=== PATIENT | female | born 1955 | race Caucasian/White ===

== ENCOUNTER 2025-03-20 14:22 | Inpatient (IN) ==
--- NOTE | 2025-03-20 14:26 | Emergency Department Note ---
Impression & Plan SBO (small bowel obstruction), Elevated lactic acid level, Abdominal pain, Nausea & vomiting ED Provider Note ED Provider Note NAME: VENUS MA AGE:69 SEX: Female : 1955 ARRIVES VIA: EMS INFORMANT: Patient ED PROVIDER(s): Chari Dhaliwal CHIEF COMPLAINT: Weakness HPI: 69-year-old female presents emergency room with complaints of general weakness. She states that this morning she felt weak and shaky. She states she felt like she was ill. She had several episodes of nausea and vomiting. She has no abdominal pain at this time on my exam, but her states that at home she had severe pain. Patient states that she had no trauma. She states that she was concerned about the possibility of a UTI since she woke up not feeling well. She has a history of uterine CA by her own history and had surgical cure of that almost 10 years prior. She states that she hasn't had any illnesses since. PAST MEDICAL HISTORY:See Below PAST SURGICAL HISTORY:See Below FAMILY HISTORY:See Below SOCIAL HISTORY:See Below HOME MEDICATIONS:See Below ALLERGIES:See Below VITALS:See Below PHYSICAL EXAMINATION: GENERAL: alert, well appearing, well nourished, no distress, non-toxic NECK: supple, no nuchal rigidity, no adenopathy, non-tender LUNGS: Clear to auscultation. Normal chest wall mechanics, no w/r/r HEART: no murmurs, S1 normal and S2 normal ABDOMEN: abdomen soft, non-tender, normo-active bowel sounds, no masses, no rebound or guarding. BACK: Back is symmetrical on inspection and there is no deformity, no midline tenderness, no CVA tenderness. SKIN: no rashes, petechiae, orbruising UPPER EXTREMITIES: upper extremities are grossly normal. FROM, nml pulses b/l. LOWER EXTREMITIES: No pitting edema. FROM, nml pulses b/l. NEURO EXAM: Normal sensorium, cranial nerves II-XII grossly intact, normal speech, no facial droop,nogross weakness of arms, no gross weakness of legs. Gross sensation intact. No ataxia. Vital Signs: reviewed and remarkable Differential Diagnosis: MEDICAL DECISION MAKIN-year-old female presents emergency room with complaints of nausea vomiting abdominal pain feeling generally weak. Found to have SBO. No further nausea vomiting in the emergency room. Can hold off on a NG for now. Plan for admitting to medicine. Consulted surgery, agreeable with plan. Medicine agreed to admit. Spoke with patient and her family, they are agreeable with plan for admission. Patient initially refused pain meds in the emergency room, did ask for pain meds upon speaking to her about admission, given meds with good improvement of pain. Consultation(s): Surgery - admit to medicine ER Treatment Provided: See below Diagnostics Interpreted By Me: -Laboratory studies: As stated above and show below. -Imaging studies: SBO Triage Nursing Note Reviewed Prior/Outside Records Reviewed Past Med/Surg History Problem List (Updated 03/20/25 @ 17:56 by Nancy Dhaliwal, ) SBO (small bowel obstruction) (Acute) Small bowel obstruction due to adhesions Nausea & vomiting (Acute) Abdominal pain (Acute) Elevated lactic acid level (Acute) Dizziness (Acute) Dizziness (Acute) Social History Smoking Status: Never smoker Feels Safe at Home: Yes Allergies Allergies Allergy/AdvReac Type Severity Reaction Status Date / Time No Known Allergies Allergy NONE Verified 03/20/25 17:04 Home Meds Home Medications Medication Instructions Recorded Confirmed No Known Home Medications 03/20/25 03/20/25 Results & Data (ED) Vital Signs Vital Signs - 24 hr 03/20/25 14:31 03/20/25 14:41 03/20/25 14:44 Temperature 36.5 C Temperature Source Oral Pulse Rate 66 Pulse Rate [Apical] 74 Pulse Rate from SpO2 Sensor Respiratory Rate 16 24 Respiratory Effort / Characteristics Non-Labored Spontaneous Non-Labored Spontaneous Respiratory Depth Normal Normal Respiratory Pattern Regular Blood Pressure 105/74 Blood Pressure Mean 84 Blood Pressure Position Semi-fowlers Pulse Oximetry 98 100 98 Oxygen Delivery Method Room Air Room Air Room Air Sepsis Recent Fever Within 48 Hours No Sepsis New/Unexplained Change in Mental Status No Sepsis Action Taken by Nursing No Action Required 03/20/25 15:00 03/20/25 15:06 03/20/25 15:57 Temperature Temperature Source Pulse Rate 85 67 71 Pulse Rate [Apical] Pulse Rate from SpO2 Sensor 79 78 Respiratory Rate 16 20 Respiratory Effort / Characteristics Respiratory Depth Respiratory Pattern Blood Pressure Blood Pressure Mean Blood Pressure Position Pulse Oximetry 97 99 Oxygen Delivery Method Sepsis Recent Fever Within 48 Hours Sepsis New/Unexplained Change in Mental Status Sepsis Action Taken by Nursing 03/20/25 16:00 03/20/25 16:00 03/20/25 16:00 Temperature Temperature Source Pulse Rate Pulse Rate [Apical] Pulse Rate from SpO2 Sensor Respiratory Rate Respiratory Effort / Characteristics Respiratory Depth Respiratory Pattern Blood Pressure 136/91 136/91 136/91 Blood Pressure Mean 111 111 111 Blood Pressure Position Pulse Oximetry Oxygen Delivery Method Sepsis Recent Fever Within 48 Hours Sepsis New/Unexplained Change in Mental Status Sepsis Action Taken by Nursing 03/20/25 16:00 03/20/25 16:27 03/20/25 16:31 Temperature Temperature Source Pulse Rate 71 78 Pulse Rate [Apical] Pulse Rate from SpO2 Sensor 71 74 Respiratory Rate 23 20 Respiratory Effort / Characteristics Respiratory Depth Respiratory Pattern Blood Pressure 128/103 H Blood Pressure Mean 113 Blood Pressure Position Pulse Oximetry 100 97 Oxygen Delivery Method Sepsis Recent Fever Within 48 Hours Sepsis New/Unexplained Change in Mental Status Sepsis Action Taken by Nursing 03/20/25 16:36 03/20/25 17:00 03/20/25 17:00 Temperature Temperature Source Pulse Rate 77 Pulse Rate [Apical] Pulse Rate from SpO2 Sensor 77 Respiratory Rate 20 Respiratory Effort / Characteristics Respiratory Depth Respiratory Pattern Blood Pressure 135/67 135/67 Blood Pressure Mean 92 92 Blood Pressure Position Pulse Oximetry 95 Oxygen Delivery Method Sepsis Recent Fever Within 48 Hours Sepsis New/Unexplained Change in Mental Status Sepsis Action Taken by Nursing 03/20/25 17:00 03/20/25 17:00 03/20/25 17:18 Temperature Temperature Source Pulse Rate 71 60 Pulse Rate [Apical] Pulse Rate from SpO2 Sensor Respiratory Rate 16 14 Respiratory Effort / Characteristics Respiratory Depth Respiratory Pattern Blood Pressure 135/67 Blood Pressure Mean 92 Blood Pressure Position Pulse Oximetry Oxygen Delivery Method Sepsis Recent Fever Within 48 Hours Sepsis New/Unexplained Change in Mental Status Sepsis Action Taken by Nursing 03/20/25 17:30 03/20/25 17:30 03/20/25 17:30 Temperature Temperature Source Pulse Rate Pulse Rate [Apical] Pulse Rate from SpO2 Sensor Respiratory Rate Respiratory Effort / Characteristics Respiratory Depth Respiratory Pattern Blood Pressure 132/76 132/76 132/76 Blood Pressure Mean 105 105 105 Blood Pressure Position Pulse Oximetry Oxygen Delivery Method Sepsis Recent Fever Within 48 Hours Sepsis New/Unexplained Change in Mental Status Sepsis Action Taken by Nursing 03/20/25 17:33 Temperature Temperature Source Pulse Rate 67 Pulse Rate [Apical] Pulse Rate from SpO2 Sensor 65 Respiratory Rate 17 Respiratory Effort / Characteristics Respiratory Depth Respiratory Pattern Blood Pressure Blood Pressure Mean Blood Pressure Position Pulse Oximetry 100 Oxygen Delivery Method Sepsis Recent Fever Within 48 Hours Sepsis New/Unexplained Change in Mental Status Sepsis Action Taken by Nursing Laboratory Data 03/20/25 14:36 03/20/25 14:36 Lab Results 03/20/25 03/20/25 03/20/25 Range/Units 14:36 15:16 15:40 WBC 12.25 H (4.8-10.8) K/ul RBC 5.30 (4.20-5.40) M/uL Hgb 15.8 (12.0-16.0) g/dl Hct 45.5 (37.0-47.0) % MCV 85.8 (80.0-100.0) fL MCH 29.8 (25.0-34.0) pg MCHC 34.7 (32.0-36.0) g/dL RDW Std Deviation 41.8 (36.4-46.3) fL RDW Coeff of Jose 13.3 (11.5-14.5) % Plt Count 340 (130-400) K/uL MPV 10.1 (9.4-12.4) fL Immature Gran % (Auto) 0.3 % Neut % (Auto) 87.8 % Lymph % (Auto) 7.2 % [place] % (Auto) 3.8 % Eos % (Auto) 0.4 % Baso % (Auto) 0.5 % Neut # (Auto) 10.75 H (1.40-6.50) K/uL Lymph # (Auto) 0.88 L (1.20-3.40) K/uL [place] # (Auto) 0.47 (0.11-0.59) K/uL Eos # (Auto) 0.05 (0.00-0.50) K/uL Baso # (Auto) 0.06 (0.00-0.20) K/uL Immature Gran # (Auto) 0.04 (0.01-0.20) K/uL Sodium 138 (136-145) mmol/L Potassium 3.7 (3.5-5.1) mmol/L Chloride 100 (98-107) mmol/L Carbon Dioxide 23 (21-32) mmol/L Anion Gap 15 H (3-11) BUN 22 (6-23) mg/dl Creatinine 0.83 (0.6-1.2) mg/dl Est Cr Clr Drug Dosing 49.4 ml/min eGFR 75.79 BUN/Creatinine Ratio 26.5 H (10-20) Glucose 166 H (70-99(Fasting)) mg/dl Lactate 3.6 H* (0.4-2.0) mmol/L Calcium 10.2 (8.6-10.3) mg/dl Total Bilirubin 1.1 H (0.2-1.0) mg/dl AST 22 (13-39) U/L ALT 12 (7-52) U/L Alkaline Phosphatase 67 (34-104) U/L Troponin I High Sens 3.3 (0-14) pg/ml Total Protein 8.2 (6.0-8.3) gm/dl Albumin 4.3 (3.4-5.0) gm/dl Globulin 3.9 (2.5-4.0) gm/dl Albumin/Globulin Ratio 1.1 (0.9-2) Lipase 48 (11-82) U/L Urine Color Cancelled Urine Appearance Cancelled Urine pH Cancelled Ur Specific [place] Cancelled Urine Protein Cancelled Urine Glucose (UA) Cancelled Urine Ketones Cancelled Urine Blood Cancelled Urine Nitrite Cancelled Urine Bilirubin Cancelled Urine Urobilinogen Cancelled Ur Leukocyte Esterase Cancelled Urine WBC (Auto) Cancelled Urine RBC (Auto) Cancelled U Hyaline Cast (Auto) Cancelled U Epithel Cells (Auto) Cancelled Urine Bacteria (Auto) Cancelled Ur Renal Epithelial Cell Cancelled [place] Biurate Crystals Cancelled Calcium Oxalate Crystal Cancelled Leucine Crystals Cancelled Cystine Crystals Cancelled Uric Acid Crystals Cancelled Triple Phos Crystals Cancelled Sulfonamide Crystals Cancelled Cholesterol Crystals Cancelled [place] Crystals Cancelled Tyrosine Crystals Cancelled Hippuric Acid Crystals Cancelled Unidentified Crystals Cancelled Amorphous Sediment Cancelled Epithelial Casts Cancelled Hyaline Casts Cancelled Granular Casts Cancelled Waxy Casts Cancelled RBC Casts Cancelled WBC Casts Cancelled Other Casts Cancelled Urine Mucus Cancelled Urine Other Cancelled Urine Trichomonas Cancelled Urine Yeast Cancelled Urine Sperm Cancelled Ur Oval Fat Bodies Cancelled Urine Comment Cancelled Administered Medications Sodium Chloride (Nss) 500 mls @ 125 mls/hr IV .Q4H [facility] Stop: 03/20/25 20:14 Last Admin: 03/20/25 17:27 Dose: 125 mls/hr Documented By: ELVIRA Sodium Chloride (Nss) 500 mls @ 80 mls/hr IV .Q6H15M [facility] Stop: 03/20/25 22:59 Last Admin: 03/20/25 17:31 Dose: Not Given Documented By: ELVIRA Ondansetron HCl (Ondansetron Inj 2 Mg/Ml 2 Ml Vial) 4 mg IV Q6H PRN PRN Reason: Nausea Stop: 04/19/25 16:37 Last Admin: 03/20/25 17:52 Dose: 4 mg Documented By: ELVIRA Discontinued Medications Hydromorphone HCl (Hydromorphone Inj 0.5 Mg/0.5 Ml Syr) 0.5 mg IV NOW STA Stop: 03/20/25 16:33 Last Admin: 03/20/25 16:43 Dose: 0.5 mg Documented By: ELVIRA Sodium Chloride (Nss) 1,000 mls @ 999 mls/hr IV .Q1H1M [facility] Stop: 03/20/25 16:48 Last Admin: 03/20/25 15:57 Dose: 999 mls/hr Documented By: BERTHA Imaging Data Radiologist's Impression: Chest X-Ray 03/20/25 14:38 XR chest 1V portable CLINICAL HISTORY: SOB COMPARISON STUDY: 11/07/2013 FINDINGS: Stable cardiomegaly without pulmonary vascular congestion. No consolidation or pleural effusion. No pneumothorax. IMPRESSION: No acute findings. ACT 112: Negative or not required by law. Electronically signed by: Joshua Maldonado M.D. 03/20/2025 3:02 PM Abdomen/Pelvis CT 03/20/25 14:[address] WITHOUT CONTRAST CT DOSE: 372.26 mGy.cm HISTORY: pain, NV TECHNIQUE: Multiaxial CT images of the abdomen and pelvis were performed without contrast. A dose lowering technique was utilized adhering to the principles of ALARA. COMPARISON STUDY: None FINDINGS: ABDOMEN: There is a 4 cm cyst inferior right hepatic lobe. Otherwise the liver, gallbladder, spleen, pancreas, and adrenal glands have an unremarkable noncontrast appearance. Kidneys show no hydronephrosis or calculi. There are moderate atherosclerotic calcifications. No abdominal aortic aneurysm. Pelvis: Urinary bladder is decompressed. Uterus is absent. No adnexal mass. There is sigmoid diverticulosis. No acute diverticulitis. There is distention of the small bowel at the left upper quadrant to the anterior low pelvis, likely involving mid jejunum to distal jejunum or proximal ileum. Distended small bowel loops measure up to 3.5 cm diameter. Mid and distal ileum are decompressed. No colonic distention seen. There is trace low pelvic free fluid. No free air or abscess. No enlarged adenopathy. No acute osseous finding seen. IMPRESSION: Small bowel obstruction with transition zone in the region of the proximal ileum. Otherwise as described. ACT 112: Negative or not required by law. The above report was generated using voice recognition software. It may contain grammatical, syntax or spelling errors. Electronically signed by: Joshua Maldonado M.D. 03/20/2025 4:03 PM Discharge Plan Visit Data Chief Complaint: Abdominal Pain Stated Complaint: AB PAIN, NAUSEA ED Provider: Nancy Dhaliwal Discharge Problem: SBO (small bowel obstruction), Elevated lactic acid level, Abdominal pain, Nausea & vomiting Patient Disposition: Admitted As Inpatient Condition: Good Forms Stand Alone Forms: [employer] Prescriptions Prescriptions: No Action No Known Home Medications Referrals Referrals: PCP,NO [Primary Care Provider] -
[2025-03-20 14:51] LABS: Hematocrit (blood only) 45.5 % (37.0-47.0); Hemoglobin 15.8 g/dl (12.0-16.0); Immature Granulocytes # (auto) 0.04 K/uL (0.01-0.20); Immature Granulocytes % (auto) 0.3 %; Mean Corpuscular Hemoglobin 29.8 pg (25.0-34.0); Mean Corpuscular Volume 85.8 fL (80.0-100.0); Platelet Count 340 K/uL (130-400); RDW Standard Deviation 41.8 fL (36.4-46.3); Red Blood Count 5.30 M/uL (4.20-5.40); White Blood Count 12.25 K/ul (4.8-10.8)
--- NOTE | 2025-03-20 15:03 | XRay Report ---
XR chest 1V portable CLINICAL HISTORY: SOB COMPARISON STUDY: 11/07/2013 FINDINGS: Stable cardiomegaly without pulmonary vascular congestion. No consolidation or pleural effu enid. No pneumothorax. IMPRESSION: No acute findings. ACT 112: Negative or not required by law. Electronically signed by: Joshua Maldonado M.D. 03/20/2025 3:02 PM
[2025-03-20 15:08] LABS: Alanine Aminotransferase 12.0 U/L (7-52); Albumin Globulin Ratio 1.1 (0.9-2); Albumin Level 4.3 gm/dl (3.4-5.0); Alkaline Phosphatase 67.0 U/L (34-104); Anion Gap 15.0 (3-11); Bilirubin,Total 1.1 mg/dl (0.2-1.0); Blood Urea Nitrogen 22.0 mg/dl (6-23); Calcium 10.2 mg/dl (8.6-10.3); Carbon Dioxide 23.0 mmol/L (21-32); Chloride 100.0 mmol/L (98-107); Creatinine Clr Calc Pharmacy 49.4 ml/min; Globulin 3.9 gm/dl (2.5-4.0); Glucose 166.0 mg/dl (70-99(Fasting)); Lipase 48.0 U/L (11-82); Potassium 3.7 mmol/L (3.5-5.1); Sodium 138.0 mmol/L (136-145); Total Protein 8.2 gm/dl (6.0-8.3)
[2025-03-20] MEDS: SODIUM CHLORIDE 0.9% 1,000 ML IV SCH (15:57)
--- NOTE | 2025-03-20 16:05 | CT Scan Report ---
ABDOMEN AND PELVIS CT WITHOUT CONTRAST CT DOSE: 372.26 mGy.cm HISTORY: pain, NV TECHNIQUE: Multiaxial CT images of the abdomen and pelvis were performed without contrast. A dose lo wering technique was utilized adhering to the principles of ALARA. COMPARISON STUDY: None FINDINGS: ABDOMEN: There is a 4 cm cyst inferior right hepatic lobe. Otherwise the liver, gallbladder, spleen, pancreas, and adrenal glands have an unremarkable noncontrast appearance. Kidneys show no hydronephro sis or calculi. There are moderate atherosclerotic calcifications. No abdominal aortic aneurysm. Pelvis: Urinary bladder is decompressed. Uterus is absent. No adnexal mass. There is sigmoid divertic ulosis. No acute diverticulitis. There is distention of the small bowel at the left upper quadrant to the anterior low pelvis, likely involving mid jejunum to distal jejunum or proximal ileum. Distended small bowel loops measure up to 3.5 cm diameter. Mid and distal ileum are decompressed. No colonic d istention seen. There is trace low pelvic free fluid. No free air or abscess. No enlarged adenopathy. No acute osseous finding seen. IMPRESSION: Small bowel obstruction with transition zone in the region of the proximal ileum. Otherwi se as described. ACT 112: Negative or not required by law. The above report was generated using voice recognition software. It may contain grammatical, syntax o r spelling errors. Electronically signed by: Joshua Maldonado M.D. 03/20/2025 4:03 PM
[2025-03-20] MEDS ORDERED: ACETAMINOPHEN 325 MG TAB PO PRN (16:38)
[2025-03-20] MEDS ORDERED: MoRPHine SULFATE 4 MG/ML 1 ML CARP\\VIAL IV PRN (16:38)
[2025-03-20] MEDS: HYDROmorphone INJ 0.5 MG/0.5 ML SYR IV STA (16:43)
[2025-03-20] MEDS: SODIUM CHLORIDE 0.9% 500 ML IV SCH ×2 (17:27→17:31)
--- NOTE | 2025-03-20 17:40 | Surgery Consultation ---
Date of Consultation March 20, 2025 Assessment & Plan (1) Small bowel obstruction due to adhesions: Small bowel obstruction likely secondary to adhesions from prior surgery Admit to medicine N.p.o., if vomits or symptoms persist may need NG tube Repeat KUB in the morning Discussed with patient and family that if patient fails nonoperative management then surgery may be necessary Surgical follow, call with questions or concerns History of Present Illness Reason for Consultation: Abdominal pain, SBO History of Present Illness Patient presented to the emergency department with lower abdominal pain that started this morning. Also had some nausea, no actual emesis. Prior total abdominal hysterectomy for tumor, no further therapy needed. No other abdominal surgeries. No known allergies. Still feels sick, pain is improved with pain medications. Not on any blood thinners. Allergies Allergy/AdvReac Type Severity Reaction Status Date / Time No Known Allergies Allergy NONE Verified 03/20/25 17:04 Home Medications Medication Instructions Recorded Confirmed Type No Known Home Medications 03/20/25 03/20/25 History Patient History Social History Smoking Status: Never smoker Feels Safe at Home: Yes Review of Systems Review of Systems: All systems reviewed & are unremarkable except as noted in HPI & below Physical Exam Constitutional: WD/WN, vitals as above + ill appearing Respiratory: normal respiratory effort, lungs clear to auscultation Cardiovascular: RRR, no murmur, no edema Gastrointestinal (Abdomen): Inspection/Auscultation: + abdomen distended (Mild) and + abdominal surgical scar Percussion/Palpation: + abdomen tender (Mildly tender to palpation bilateral lower quadrant, R>L) and abdomen soft; no guarding and abdomen not rigid Results & Data Vital Signs (Past 12 Hours) Vital Signs Temp Pulse Pulse Resp BP Pulse Ox O2 Del Method 03/20/25 17:00 71 16 03/20/25 17:00 135/67 03/20/25 17:00 135/67 03/20/25 17:00 135/67 03/20/25 16:36 77 20 95 03/20/25 16:31 128/103 H 03/20/25 16:27 78 20 97 03/20/25 16:00 71 23 100 03/20/25 16:00 136/91 03/20/25 16:00 136/91 03/20/25 16:00 136/91 03/20/25 15:57 71 20 99 03/20/25 15:06 67 03/20/25 15:00 85 16 97 03/20/25 14:44 98 Room Air 03/20/25 14:41 74 24 100 Room Air 03/20/25 14:31 36.5 C 66 16 105/74 98 Room Air Laboratory Results Laboratory Results - last 24 hr 03/20/25 03/20/25 03/20/25 14:36 15:16 15:40 WBC 12.25 H RBC 5.30 Hgb 15.8 Hct 45.5 MCV 85.8 MCH 29.8 MCHC 34.7 RDW Std Deviation 41.8 RDW Coeff of Jose 13.3 Plt Count 340 MPV 10.1 Immature Gran % (Auto) 0.3 Neut % (Auto) 87.8 Lymph % (Auto) 7.2 Delta % (Auto) 3.8 Eos % (Auto) 0.4 Baso % (Auto) 0.5 Neut # (Auto) 10.75 H Lymph # (Auto) 0.88 L Delta # (Auto) 0.47 Eos # (Auto) 0.05 Baso # (Auto) 0.06 Immature Gran # (Auto) 0.04 Sodium 138 Potassium 3.7 Chloride 100 Carbon Dioxide 23 Anion Gap 15 H BUN 22 Creatinine 0.83 Est Cr Clr Drug Dosing 49.4 eGFR 75.79 BUN/Creatinine Ratio 26.5 H Glucose 166 H Lactate 3.6 H* Calcium 10.2 Total Bilirubin 1.1 H AST 22 ALT 12 Alkaline Phosphatase 67 Troponin I High Sens 3.3 Total Protein 8.2 Albumin 4.3 Globulin 3.9 Albumin/Globulin Ratio 1.1 Lipase 48 Urine Color Cancelled Urine Appearance Cancelled Urine pH Cancelled Ur Specific [place] Cancelled Urine Protein Cancelled Urine Glucose (UA) Cancelled Urine Ketones Cancelled Urine Blood Cancelled Urine Nitrite Cancelled Urine Bilirubin Cancelled Urine Urobilinogen Cancelled Ur Leukocyte Esterase Cancelled Urine WBC (Auto) Cancelled Urine RBC (Auto) Cancelled U Hyaline Cast (Auto) Cancelled U Epithel Cells (Auto) Cancelled Urine Bacteria (Auto) Cancelled Ur Renal Epithelial Cell Cancelled [place] A Biurate Crystals Cancelled Calcium Oxalate Crystal Cancelled Leucine Crystals Cancelled Cystine Crystals Cancelled Uric Acid Crystals Cancelled Triple Phos Crystals Cancelled Sulfonamide Crystals Cancelled Cholesterol Crystals Cancelled [place] Crystals Cancelled Tyrosine Crystals Cancelled Hippuric Acid Crystals Cancelled Unidentified Crystals Cancelled Amorphous Sediment Cancelled Epithelial Casts Cancelled Hyaline Casts Cancelled Granular Casts Cancelled Waxy Casts Cancelled RBC Casts Cancelled WBC Casts Cancelled Other Casts Cancelled Urine Mucus Cancelled Urine Other Cancelled Urine Trichomonas Cancelled Urine Yeast Cancelled Urine Sperm Cancelled Ur Oval Fat Bodies Cancelled Urine Comment Cancelled Diagnostic Findings CT personally reviewed and interpreted agree with the assessment of dilated bowel with a transition point in the ileum in the right lower quadrant consistent with a suspected small bowel obstruction from adhesions. No free air, free fluid, or ischemia Chest X-Ray 03/20/25 14:38 XR chest 1V portable CLINICAL HISTORY: SOB COMPARISON STUDY: 11/07/2013 FINDINGS: Stable cardiomegaly without pulmonary vascular congestion. No consolidation or pleural effusion. No pneumothorax. IMPRESSION: No acute findings. ACT 112: Negative or not required by law. Electronically signed by: Joshua Maldonado M.D. 03/20/2025 3:02 PM Abdomen/Pelvis CT 03/20/25 14:[address] WITHOUT CONTRAST CT DOSE: 372.26 mGy.cm HISTORY: pain, NV TECHNIQUE: Multiaxial CT images of the abdomen and pelvis were performed without contrast. A dose lowering technique was utilized adhering to the principles of ALARA. COMPARISON STUDY: None FINDINGS: ABDOMEN: There is a 4 cm cyst inferior right hepatic lobe. Otherwise the liver, gallbladder, spleen, pancreas, and adrenal glands have an unremarkable noncontrast appearance. Kidneys show no hydronephrosis or calculi. There are moderate atherosclerotic calcifications. No abdominal aortic aneurysm. Pelvis: Urinary bladder is decompressed. Uterus is absent. No adnexal mass. There is sigmoid diverticulosis. No acute diverticulitis. There is distention of the small bowel at the left upper quadrant to the anterior low pelvis, likely involving mid jejunum to distal jejunum or proximal ileum. Distended small bowel loops measure up to 3.5 cm diameter. Mid and distal ileum are decompressed. No colonic distention seen. There is trace low pelvic free fluid. No free air or abscess. No enlarged adenopathy. No acute osseous finding seen. IMPRESSION: Small bowel obstruction with transition zone in the region of the proximal ileum. Otherwise as described. ACT 112: Negative or not required by law. The above report was generated using voice recognition software. It may contain grammatical, syntax or spelling errors. Electronically signed by: Joshua Maldonado M.D. 03/20/2025 4:03 PM PG Care Time/CCT Total # of Minutes Spent Total Time Spent with Patient: Total time spent is greater than 50% in coordination of care (as documented) at patient's floor/unit and/or counseling patient: Coding Level of Care Code 41008 OP VST NEW MOD 45 MIN Diagnoses Small bowel obstruction due to adhesions K56.50
[2025-03-20] MEDS: ONDANSETRON INJ 2 MG/ML 2 ML VIAL IV PRN (17:52)
--- NOTE | 2025-03-20 18:16 | History & Physical Report ---
Date of Service March 20, 2025 Assessment & Plan (1) SBO (small bowel obstruction): Plan: -CT showing dilated bowel with a transition point in the ileum in the right lower quadrant consistent with a suspected small bowel obstruction from adhesions. -NPO -IVF -zofran -morphine PRN -KUB in am -Surgery consult appreciated Plan Heparin SQ for DVT px History of Present Illness Chief Complaint: Abdominal pain Primary Care Provider: NO PCP Pt is a 69 y/o female with undiagnosed dementia, ovarian CA s/p total hysterectomy, who presents with abdominal pain that started earlier today. Her states she had some nausea, but no vomiting. In the ER she had a CT a/p which showed dilated bowel with a transition point in the ileum in the right lower quadrant consistent with a suspected small bowel obstruction from adhesions. Pt was seen by surgery who recommends NPO, IVF, and KUB in the am. NGT not inserted. Allergies Allergy/AdvReac Type Severity Reaction Status Date / Time No Known Allergies Allergy NONE Verified 03/20/25 17:04 Home Medications Medication Instructions Recorded Confirmed Type No Known Home Medications 03/20/25 03/20/25 History Past Med/Surg History Problem List (Updated 03/20/25 @ 17:56 by Nancy Dhaliwal DO) SBO (small bowel obstruction) (Acute) Small bowel obstruction due to adhesions Nausea & vomiting (Acute) Abdominal pain (Acute) Elevated lactic acid level (Acute) Dizziness (Acute) Dizziness (Acute) Social History Smoking Status: Never smoker Feels Safe at Home: Yes Review of Systems Review of Systems: CONST: Negative for fever, body aches and chills. HENT: Negative for neck pain/stiffness, headache, congestion, sore throat, swelling. EYES: Negative for discharge/pain or vision changes. RESP: Negative for cough/hemoptysis and shortness of breath. CV: Negative chest pain, difficulty breathing, palpitations. ABD: + pain, nausea, vomiting. : Negative increase frequency, dysuria, blood in urine or stool. MUSC: Negative for muscle aches, edema. SKIN: Negative rash, lesions/sores. NEURO: Negative headache, dizziness, weakness. Physical Exam Physical Exam: GENERAL APPEARANCE NAD, activity normal for age, well developed/ well nourished, no cyanosis, pallor, or diaphoresis. EYES lids/conjunctiva normal. EARS/NOSE/THROAT Mucous membranes moist, nares normal, lips/teeth normal uvula midline without oral pharyngeal erythema, exudate or swelling TMs normal bilaterally. No lymphangitis/lymphedema. HEAD/NECK normocephalic atraumatic, no facial trauma, neck is supple. RESPIRATORY respiratory effort normal, speaks in full sentences, no tripod position, no accessory muscle use. Lungs clear to auscultation without rhonchi, wheezes, rales CARDIAC Regular rate and rhythm, no edema. ABDOMINAL Soft, ND/NT. No evidence of fluid wave. No pulsatile masses on exam, rebound tenderness, Landaverde sign or pain over Mcburney's point. MUSCLES/EXTREMITIES No abnormal range of motion, no swelling. SKIN Warm, pink and dry. No rashes, dermatoses, petechiae or lesions. NEUROLOGICAL Speech is clear and appropriate. Normal level of consciousness. Gait and coordination are normal. 5/5 strength in all extremities. PSYCH Normal mood and affect. Judgement/competence is appropriate Results & Data Results & Data Vital Signs (Past 12 Hours) Vital Signs Temp Pulse Pulse Resp BP BP Pulse Ox 03/20/25 18:09 36.5 C 78 16 138/77 98 03/20/25 17:33 67 17 100 03/20/25 17:30 132/76 03/20/25 17:30 132/76 03/20/25 17:30 132/76 03/20/25 17:18 60 14 03/20/25 17:00 71 16 03/20/25 17:00 135/67 03/20/25 17:00 135/67 03/20/25 17:00 135/67 03/20/25 16:36 77 20 95 03/20/25 16:31 128/103 H 03/20/25 16:27 78 20 97 03/20/25 16:00 71 23 100 03/20/25 16:00 136/91 03/20/25 16:00 136/91 03/20/25 16:00 136/91 03/20/25 15:57 71 20 99 03/20/25 15:06 67 03/20/25 15:00 85 16 97 03/20/25 14:44 98 03/20/25 14:41 74 24 100 03/20/25 14:31 36.5 C 66 16 105/74 98 O2 Del Method 03/20/25 18:09 Room Air 03/20/25 17:33 03/20/25 17:30 03/20/25 17:30 03/20/25 17:30 03/20/25 17:18 03/20/25 17:00 03/20/25 17:00 03/20/25 17:00 03/20/25 17:00 03/20/25 16:36 03/20/25 16:31 03/20/25 16:27 03/20/25 16:00 03/20/25 16:00 03/20/25 16:00 03/20/25 16:00 03/20/25 15:57 03/20/25 15:06 03/20/25 15:00 03/20/25 14:44 Room Air 03/20/25 14:41 Room Air 03/20/25 14:31 Room Air PG Care Time/CCT Total # of Minutes Spent Total Time Spent with Patient: Total time spent is greater than 50% in coordination of care (as documented) at patient's floor/unit and/or counseling patient: Coding Level of Care Code 97551 INT INP/OBS CARE 2/55MIN Diagnoses SBO (small bowel obstruction) K56.609
[2025-03-20] MEDS: HEPARIN SOD 5,000 UNIT/0.5 ML VIAL SQ SCH (21:52)
[2025-03-21 08:06] LABS: Hematocrit (blood only) 38.0 % (37.0-47.0); Hemoglobin 13.1 g/dl (12.0-16.0); Mean Corpuscular Hemoglobin 29.6 pg (25.0-34.0); Mean Corpuscular Volume 85.8 fL (80.0-100.0); Platelet Count 304 K/uL (130-400); RDW Standard Deviation 42.7 fL (36.4-46.3); Red Blood Count 4.43 M/uL (4.20-5.40); White Blood Count 10.28 K/ul (4.8-10.8)
[2025-03-21 08:20] LABS: Anion Gap 9.0 (3-11); Blood Urea Nitrogen 22.0 mg/dl (6-23); Calcium 8.8 mg/dl (8.6-10.3); Carbon Dioxide 24.0 mmol/L (21-32); Chloride 107.0 mmol/L (98-107); Creatinine Clr Calc Pharmacy 52.5 ml/min; Glucose 94.0 mg/dl (70-99(Fasting)); Potassium 4.0 mmol/L (3.5-5.1); Sodium 140.0 mmol/L (136-145)
--- NOTE | 2025-03-21 11:14 | Hospitalist Progress Note ---
Date of Service March 21, 2025 Assessment & Plan (1) SBO (small bowel obstruction): Plan: -CT showing dilated bowel with a transition point in the ileum in the right lower quadrant consistent with a suspected small bowel obstruction from adhesions. -NPO -IVF -zofran -morphine PRN - f/u KUB this am -Surgery consult appreciated Plan Heparin SQ for DVT px Admission and Anticipated Discharge Date Admission Date: March 20, 2025 Subjective Pt denies any abdominal pain, nausea, or vomiting. Review of Systems Review of Systems: CONST: Negative for fever, body aches and chills. HENT: Negative for neck pain/stiffness, headache, congestion, sore throat, swelling. EYES: Negative for discharge/pain or vision changes. RESP: Negative for cough/hemoptysis and shortness of breath. CV: Negative chest pain, difficulty breathing, palpitations. ABD: + pain, nausea, vomiting. : Negative increase frequency, dysuria, blood in urine or stool. MUSC: Negative for muscle aches, edema. SKIN: Negative rash, lesions/sores. NEURO: Negative headache, dizziness, weakness. Physical Exam Physical Exam: GENERAL APPEARANCE NAD, activity normal for age, well developed/ well nourished, no cyanosis, pallor, or diaphoresis. EYES lids/conjunctiva normal. EARS/NOSE/THROAT Mucous membranes moist, nares normal, lips/teeth normal uvula midline without oral pharyngeal erythema, exudate or swelling TMs normal bilaterally. No lymphangitis/lymphedema. HEAD/NECK normocephalic atraumatic, no facial trauma, neck is supple. RESPIRATORY respiratory effort normal, speaks in full sentences, no tripod position, no accessory muscle use. Lungs clear to auscultation without rhonchi, wheezes, rales CARDIAC Regular rate and rhythm, no edema. ABDOMINAL Soft, ND/NT. No evidence of fluid wave. No pulsatile masses on exam, rebound tenderness, Landaverde sign or pain over Mcburney's point. MUSCLES/EXTREMITIES No abnormal range of motion, no swelling. SKIN Warm, pink and dry. No rashes, dermatoses, petechiae or lesions. NEUROLOGICAL Speech is clear and appropriate. Normal level of consciousness. Gait and coordination are normal. 5/5 strength in all extremities. PSYCH Normal mood and affect. Judgement/competence is appropriate Results & Data Results & Data Vital Signs (Past 12 Hours) Vital Signs Temp Pulse Resp BP BP Pulse Ox O2 Del Method 03/21/25 07:11 36.5 C 97 H 17 112/74 96 Room Air 03/20/25 23:35 36.8 C 75 16 133/74 97 Room Air PG Care Time/CCT Total # of Minutes Spent Total Time Spent with Patient: Total time spent is greater than 50% in coordination of care (as documented) at patient's floor/unit and/or counseling patient: Coding Level of Care Code 49093 SUB INP/OBS CARE 235MIN Diagnoses SBO (small bowel obstruction) K56.609
[2025-03-21] MEDS: SODIUM CHLORIDE 0.9% 1,000 ML IV SCH (11:21)
--- NOTE | 2025-03-21 11:43 | Surgery Progress Note ---
Date of Service March 21, 2025 Assessment & Plan (1) SBO (small bowel obstruction): Plan: Small bowel obstruction, improving with nonoperative management. Await formal KUB read If improved can start on clear liquids Surgical follow, call with questions or concerns Admission and Anticipated Discharge Date Admission Date: March 20, 2025 Subjective Admitted with SBO suspected from adhesions. Feels much better, though a little confused as to why she was taken to the hospital. Denies any flatus or bowel movement. Denies any nausea or abdominal pain. Physical Exam Constitutional: WD/WN, vitals as above Respiratory: normal respiratory effort, lungs clear to auscultation Cardiovascular: RRR, no murmur, no edema Gastrointestinal (Abdomen): normal bowel sounds, soft, nontender, no hepatosplenomegaly Inspection/Auscultation: abdomen not distended Results & Data Vital Signs (Past 12 Hours) Vital Signs Temp Pulse Resp BP Pulse Ox O2 Del Method 03/21/25 07:11 36.5 C 97 H 17 112/74 96 Room Air Diagnostic Findings KUB from this morning personally reviewed and interpreted and appears to have air throughout the colon with significant improvement in the bowel distention. Awaiting formal read by radiology PG Care Time/CCT Total # of Minutes Spent Total Time Spent with Patient: Total time spent is greater than 50% in coordination of care (as documented) at patient's floor/unit and/or counseling patient: Coding Level of Care Code 28466 SUB INP/OBS CARE 2/35MIN Diagnoses SBO (small bowel obstruction) K56.609
--- NOTE | 2025-03-21 12:52 | XRay Report ---
KUB CLINICAL HISTORY: Small bowel obstruction. FINDINGS: An AP, portable, supine abdominal radiograph is correlated with abdominal CT dated 03/20/20 25. There are distended and gas-filled loops of small bowel indicating persistent obstruction. These measure up to 3.5 cm in diameter. Gas and stool is seen in the colon. No evidence of intraperitoneal free air is identified on this supine image. There are no abnormal abdominal calcifications. Phleboli ths are seen in the pelvis. The skeletal structures are osteopenic and appear intact. There is modera te lumbosacral spondylosis. IMPRESSION: Persistent small bowel obstruction. Electronically signed by: Jose Armando Miller M.D. 03/21/2025 12:51 PM
[2025-03-21 13:06] LABS: Appearance Urine Clear (Clear); Glucose Urine UA Negative (Negative)
[2025-03-21] MEDS: MELATONIN 3 MG TAB PO PRN (22:19)
--- NOTE | 2025-03-22 08:51 | XRay Report ---
EXAM: XR KUB/Abdomen 1 view CLINICAL HISTORY: SBO TECHNIQUE: X-ray images of the abdomen were obtained in the supine position. COMPARISON: CT dated 03/20/2025. FINDINGS: Gas Pattern: Moderate proximal small bowel dilatation is still noted. Soft Tissues: The soft tissues of the abdomen appear normal, without evidence of masses or calcifications. Mild osteoarthritic changes of both hip joints are present. Bilateral sacroiliac joint degenerative changes are seen and are more pronounced on the left side. Spondylodegenerative changes of the thoracolumbar spine, with marginal osteophyte formation, are noted. IMPRESSION: Small bowel dilatation is still noted; no gross interval changes. Electronically signed by Armin Borrero 03-22-2025 08:51 AM
[2025-03-22 09:01] LABS: Hematocrit (blood only) 35.9 % (37.0-47.0); Hemoglobin 11.9 g/dl (12.0-16.0); Mean Corpuscular Hemoglobin 29.2 pg (25.0-34.0); Mean Corpuscular Volume 88.0 fL (80.0-100.0); Platelet Count 248 K/uL (130-400); RDW Standard Deviation 45.3 fL (36.4-46.3); Red Blood Count 4.08 M/uL (4.20-5.40); White Blood Count 6.62 K/ul (4.8-10.8)
[2025-03-22 09:19] LABS: Anion Gap 11.0 (3-11); Blood Urea Nitrogen 19.0 mg/dl (6-23); Calcium 8.5 mg/dl (8.6-10.3); Carbon Dioxide 21.0 mmol/L (21-32); Chloride 106.0 mmol/L (98-107); Creatinine Clr Calc Pharmacy 61.2 ml/min; Glucose 67.0 mg/dl (70-99(Fasting)); Potassium 4.0 mmol/L (3.5-5.1); Sodium 138.0 mmol/L (136-145)
--- NOTE | 2025-03-22 10:01 | Surgery Progress Note ---
Date of Service March 22, 2025 Assessment & Plan (1) SBO (small bowel obstruction): Plan: Small bowel obstruction, improving with nonoperative management. KUB repeated this AM- small bowel dilatation still noted. She is feeling well, denies abdominal pain. Still has not passes gas or moved her bowels. Will advance her diet to clear liquids and see how she tolerates. Patient does report that she would like to leave today, but she is aware that our recommendation is for to wait until she has return of more meaningful bowel function prior to discharge. Surgery will continue to follow, call with questions or concerns Patient see and examined with Dr. Salcido. Admission and Anticipated Discharge Date Admission Date: March 20, 2025 Supervising Physician Co-Signing Physician Notes Patient seen examined, labs and imaging reviewed, agree with above. Admitted with small bowel obstruction secondary to adhesions. She denies any abdominal pain or nausea. She denies any flatus or bowel movement. She is adamant that she is going home today. Abdomen is soft, nontender, nondistended. KUB personally reviewed and interpreted and agree with the assessment that there is a persistently dilated loop of small bowel, however she does have air in her colon and rectum. Clinically she appears to have a resolving small bowel obstruction. Will advance to clear liquids, consider advancing diet further depending on how she does. I would recommend she stay until she tolerates a low fiber diet and has some meaningful return of bowel function. Subjective Patient resting in bed, reports that she has no abdominal pain. Denies nausea or vomiting. Denies passing flatus or BM. Review of Systems Constitutional: as per Subjective / HPI; no fever and no chills Gastrointestinal: no abdominal pain, no nausea and no vomiting Physical Exam Constitutional: WD/WN, vitals as above Respiratory: normal respiratory effort, lungs clear to auscultation Cardiovascular: RRR, no murmur, no edema Gastrointestinal (Abdomen): normal bowel sounds, soft, nontender, no hepatosplenomegaly Inspection/Auscultation: abdomen not distended Results & Data Vital Signs (Past 12 Hours) Vital Signs Temp Pulse Resp BP BP Pulse Ox O2 Del Method 03/22/25 07:45 36.5 C 64 18 111/71 96 Room Air 03/21/25 22:40 36.7 C 85 16 155/80 H 96 Room Air PG Care Time/CCT Total # of Minutes Spent Total Time Spent with Patient: Total time spent is greater than 50% in coordination of care (as documented) at patient's floor/unit and/or counseling patient: Coding Level of Care Code 66585 SUB INP/OBS CARE 06/28MIN Diagnoses SBO (small bowel obstruction) K56.609
--- NOTE | 2025-03-22 11:28 | Hospitalist Progress Note ---
Date of Service March 22, 2025 Assessment & Plan (1) SBO (small bowel obstruction): Plan: -CT showing dilated bowel with a transition point in the ileum in the right lower quadrant consistent with a suspected small bowel obstruction from adhesions. -KUB 03/22 showing mild improvement -advance diet to clears as per surgery -IVF -zofran -morphine PRN -D/C home once tolerating regular diet Plan Heparin SQ for DVT px Admission and Anticipated Discharge Date Admission Date: March 20, 2025 Subjective Patient resting in bed, reports that she has no abdominal pain. Denies nausea or vomiting. She is passing flatus no BM. Review of Systems Review of Systems: CONST: Negative for fever, body aches and chills. HENT: Negative for neck pain/stiffness, headache, congestion, sore throat, swelling. EYES: Negative for discharge/pain or vision changes. RESP: Negative for cough/hemoptysis and shortness of breath. CV: Negative chest pain, difficulty breathing, palpitations. ABD: + pain, nausea, vomiting. : Negative increase frequency, dysuria, blood in urine or stool. MUSC: Negative for muscle aches, edema. SKIN: Negative rash, lesions/sores. NEURO: Negative headache, dizziness, weakness. Physical Exam Physical Exam: GENERAL APPEARANCE NAD, activity normal for age, well developed/ well nourished, no cyanosis, pallor, or diaphoresis. EYES lids/conjunctiva normal. EARS/NOSE/THROAT Mucous membranes moist, nares normal, lips/teeth normal uvula midline without oral pharyngeal erythema, exudate or swelling TMs normal bilaterally. No lymphangitis/lymphedema. HEAD/NECK normocephalic atraumatic, no facial trauma, neck is supple. RESPIRATORY respiratory effort normal, speaks in full sentences, no tripod position, no accessory muscle use. Lungs clear to auscultation without rhonchi, wheezes, rales CARDIAC Regular rate and rhythm, no edema. ABDOMINAL Soft, ND/NT. No evidence of fluid wave. No pulsatile masses on exam, rebound tenderness, Landaverde sign or pain over Mcburney's point. MUSCLES/EXTREMITIES No abnormal range of motion, no swelling. SKIN Warm, pink and dry. No rashes, dermatoses, petechiae or lesions. NEUROLOGICAL Speech is clear and appropriate. Normal level of consciousness. Gait and coordination are normal. 5/5 strength in all extremities. PSYCH Normal mood and affect. Judgement/competence is appropriate Results & Data Results & Data Vital Signs (Past 12 Hours) Vital Signs Temp Pulse Resp BP Pulse Ox O2 Del Method 03/22/25 07:45 36.5 C 64 18 111/71 96 Room Air PG Care Time/CCT Total # of Minutes Spent Total Time Spent with Patient: Total time spent is greater than 50% in coordination of care (as documented) at patient's floor/unit and/or counseling patient: Coding Level of Care Code 30482 SUB INP/OBS CARE 2/35MIN Diagnoses SBO (small bowel obstruction) K56.609
[2025-03-22] MEDS: INFLUENZA VACC TS2025-26(65y+)/PF (IIV3) 0.5mL Syr IM ONE (15:22)
[2025-03-22] MEDS: PNEUMOCOCCAL VACCINE (PCV20) 20-VAL CONJ-DIP CRM/PF 0.5 ML SYR IM ONE (15:23)
[2025-03-23 08:35] LABS: Hematocrit (blood only) 38.4 % (37.0-47.0); Hemoglobin 13.0 g/dl (12.0-16.0); Mean Corpuscular Hemoglobin 29.4 pg (25.0-34.0); Mean Corpuscular Volume 86.9 fL (80.0-100.0); Platelet Count 269 K/uL (130-400); RDW Standard Deviation 43.8 fL (36.4-46.3); Red Blood Count 4.42 M/uL (4.20-5.40); White Blood Count 6.31 K/ul (4.8-10.8)
[2025-03-23 08:49] LABS: Anion Gap 9.0 (3-11); Blood Urea Nitrogen 9.0 mg/dl (6-23); Calcium 8.8 mg/dl (8.6-10.3); Carbon Dioxide 26.0 mmol/L (21-32); Chloride 104.0 mmol/L (98-107); Creatinine Clr Calc Pharmacy 59.4 ml/min; Glucose 87.0 mg/dl (70-99(Fasting)); Potassium 3.9 mmol/L (3.5-5.1); Sodium 139.0 mmol/L (136-145)
--- NOTE | 2025-03-23 09:34 | Surgery Progress Note ---
Date of Service March 23, 2025 Assessment & Plan (1) SBO (small bowel obstruction): Plan: Pt here w/ concern for SBO Appears to be resolving, she is tolerating clears, no n/v She denies abdominal pain. she is having + bowel function Will advance to fulls and continue to advance as tolerates Possibly discharge to home today if continues to tolerate a diet Admission and Anticipated Discharge Date Admission Date: March 20, 2025 Supervising Physician Co-Signing Physician Notes Patient seen examined, agree with above. Admitted with SBO, tolerating diet, passing flatus, had a normal bowel movement this morning. No pain. On exam she is afebrile stable vitals, her abdomen is soft, nontender, nondistended. Appears her small bowel obstruction has resolved, she may advance to low fiber and be discharged to home. Surgery will sign off, call with questions or concerns. Subjective Patient feeling well. She is tolerating clears, no n/v. + flatus and BM Physical Exam Physical Exam: awake/alert, no distress Respiratory: normal respiratory effort Gastrointestinal (Abdomen): Inspection/Auscultation: abdomen not distended Percussion/Palpation: abdomen soft; abdomen nontender Results & Data Vital Signs (Past 12 Hours) Vital Signs Temp Pulse Resp BP Pulse Ox O2 Del Method 03/23/25 07:41 97.7 F 60 14 143/87 H 96 Room Air 03/22/25 22:33 98.1 F 67 16 166/80 H 99 Room Air PG Care Time/CCT Total # of Minutes Spent Total Time Spent with Patient: Total time spent is greater than 50% in coordination of care (as documented) at patient's floor/unit and/or counseling patient: Coding Level of Care Code 67549 SUB INP/OBS CARE 06/28MIN Diagnoses SBO (small bowel obstruction) K56.609
--- NOTE | 2025-03-23 14:16 | Discharge Summary ---
Discharge Summary Date of Service March 23, 2025 Principal Dx & Hospital Course #1 = Principal Diagnosis (1) SBO (small bowel obstruction): -CT showing dilated bowel with a transition point in the ileum in the right lower quadrant consistent with a suspected small bowel obstruction from adhesions. KUB 03/22 showing mild improvement. Diet advanced to low fiber and tolerating without pain or nausea. Plan for discharge home today. (2) Memory loss: No formal diagnosis of dementia - but family reports at mental baseline. Consider formal evaluation to possibly start meds. Plan discharge to home today Admission HPI Per Admitting Provider Pt is a 69 y/o female with undiagnosed dementia, ovarian CA s/p total hysterectomy, who presents with abdominal pain that started earlier today. Her states she had some nausea, but no vomiting. In the ER she had a CT a/p which showed dilated bowel with a transition point in the ileum in the right lower quadrant consistent with a suspected small bowel obstruction from adhesions. Pt was seen by surgery who recommends NPO, IVF, and KUB in the am. NGT not inserted. Discharge Exam General: NAD, VS as above Resp: normal respiratory effort, lungs clear to auscultation CV: RRR, no murmur, Abd: normal bowel sounds, non tender, soft Extremities: Moves all extremities, no edema Neuro: A&O x2, Skin: intact, no lesions noted Discharge Plan Discharge Items Patient Disposition: Home - Self-Care Reason For Visit: SBO Discharge Diagnosis: SBO Condition on Discharge: Good Activity: Resume your previous activity Bathing: No limitations Weightbearing: Full weightbearing Non-emergency contact: Primary Care Provider Call non-emergency contact if: you have any medication questions, your symptoms worsen and your pain is worsening Follow-up/Referrals: Anabelle Montana [Primary Care Provider] - (PCP - follow up within one week ) PCP,NO [Physician] - Diet: Low Fiber Addtl Attending Provider Instructions: Ms. Aparicio You were hospitalized after having significant abdominal pain - this was found to be from a small bowel obstruction. This is likely a result of your prior abdominal surgeries. Thankfully this has resolved with conservative measures and did not require surgey. Recommend continue low fiber diet for the next 7-10 days. Please follow up with your PCP within on week. No new medications. Activity: You can do normal everyday activities as your body allows. Take rest breaks if you feel tired. Do not overexert. Stop activity if you have pain, shortness of breath or feel dizzy. Follow-up appointments: Make an appointment with your primary care physician within one week of discharge. A copy of this summary will be sent to them. Every time you see your primary care physician, or any other doctor, bring your medication list, and a list of questions. CONTACT YOUR PRIMARY CARE PROVIDER if you experience any of the following: Shortness of breath or difficulty breathing Fevers or chills Feeling tired with normal activity or experiencing dizziness or fainting Difficulty following your treatment plan, or difficulty taking medications - constipation or lack of bowel movements for 3 days CALL 911 OR GO TO THE EMERGENCY DEPARTMENT if you experience any of the following: Severe abdominal pain or nausea/vomiting Severe chest pain, or chest pain that radiates (moves) to your jaw or arm Sudden, severe shortness of breath or difficulty breathing Thank you for allowing us to participate in your care. Pending Studies at Discharge: No Stand-Alone Forms: My [facility], Smoking Cessation Medications and DC Order Prescriptions: No Action No Known Home Medications Discharge Orders: Discharge Order (Routine); Ordered 03/23/25 Ordered By: Britney Vasquez/Other Patient Handouts: Small Bowel Obstruction, Low-Fiber Diet Admission Data Admit Date/Time: 03/20/25 16:38 Attending Provider: Juhi Amador Admit Provider: Issa Bach Primary Care Provider: Anabelle Montana Other Providers: Issa Bach; Joshua Salcido Hospital Stay Data Consultations 03/20/25 16:28 ED Decision to Admit Stat 03/20/25 16:38 Consult General Surgery Routine Diagnostic Imagining Performed Chest X-Ray 03/20/25 14:38 XR chest 1V portable CLINICAL HISTORY: SOB COMPARISON STUDY: 11/07/2013 FINDINGS: Stable cardiomegaly without pulmonary vascular congestion. No consolidation or pleural effusion. No pneumothorax. IMPRESSION: No acute findings. ACT 112: Negative or not required by law. Electronically signed by: Joshua Maldonado M.D. 03/20/2025 3:02 PM Abdomen/Pelvis CT 03/20/25 14:[address] WITHOUT CONTRAST CT DOSE: 372.26 mGy.cm HISTORY: pain, NV TECHNIQUE: Multiaxial CT images of the abdomen and pelvis were performed without contrast. A dose lowering technique was utilized adhering to the principles of ALARA. COMPARISON STUDY: None FINDINGS: ABDOMEN: There is a 4 cm cyst inferior right hepatic lobe. Otherwise the liver, gallbladder, spleen, pancreas, and adrenal glands have an unremarkable noncontrast appearance. Kidneys show no hydronephrosis or calculi. There are moderate atherosclerotic calcifications. No abdominal aortic aneurysm. Pelvis: Urinary bladder is decompressed. Uterus is absent. No adnexal mass. There is sigmoid diverticulosis. No acute diverticulitis. There is distention of the small bowel at the left upper quadrant to the anterior low pelvis, likely involving mid jejunum to distal jejunum or proximal ileum. Distended small bowel loops measure up to 3.5 cm diameter. Mid and distal ileum are decompressed. No colonic distention seen. There is trace low pelvic free fluid. No free air or abscess. No enlarged adenopathy. No acute osseous finding seen. IMPRESSION: Small bowel obstruction with transition zone in the region of the proximal ileum. Otherwise as described. ACT 112: Negative or not required by law. The above report was generated using voice recognition software. It may contain grammatical, syntax or spelling errors. Electronically signed by: Joshua Maldonado M.D. 03/20/2025 4:03 PM KUB X-Ray 03/21/25 10:15 KUB CLINICAL HISTORY: Small bowel obstruction. FINDINGS: An AP, portable, supine abdominal radiograph is correlated with abdom inal CT dated 03/20/2025. There are distended and gas-filled loops of small bowel indicating persistent obstruction. These measure up to 3.5 cm in diameter. Gas and stool is seen in the colon. No evidence of intraperitoneal free air is identified on this supine image. There are no abnormal abdominal calcifications. Phleboliths are seen in the pelvis. The skeletal structures are osteopenic and appear intact. There is moderate lumbosacral spondylosis. IMPRESSION: Persistent small bowel obstruction. Electronically signed by: Jose Armando Miller M.D. 03/21/2025 12:51 PM KUB X-Ray 03/22/25 07:00 EXAM: XR KUB/Abdomen 1 view CLINICAL HISTORY: SBO TECHNIQUE: X-ray images of the abdomen were obtained in the supine position. COMPARISON: CT dated 03/20/2025. FINDINGS: Gas Pattern: Moderate proximal small bowel dilatation is still noted. Soft Tissues: The soft tissues of the abdomen appear normal, without evidence of masses or calcifications. Mild osteoarthritic changes of both hip joints are present. Bilateral sacroiliac joint degenerative changes are seen and are more pronounced on the left side. Spondylodegenerative changes of the thoracolumbar spine, with marginal osteophyte formation, are noted. IMPRESSION: Small bowel dilatation is still noted; no gross interval changes. Electronically signed by Armin Borrero 03-22-2025 08:51 AM Pending Results Patient Have Any Pending Studies at Discharge: No Discharge Instructions Given to Patient (Per Discharging Provider) Ms. Alessandra Pickering were hospitalized after having significant abdominal pain - this was found to be from a small bowel obstruction. This is likely a result of your prior abdominal surgeries. Thankfully this has resolved with conservative measures and did not require surgey. Recommend continue low fiber diet for the next 7-10 days. Please follow up with your PCP within on week. No new medications. Activity: You can do normal everyday activities as your body allows. Take rest breaks if you feel tired. Do not overexert. Stop activity if you have pain, shortness of breath or feel dizzy. Follow-up appointments: Make an appointment with your primary care physician within one week of discharge. A copy of this summary will be sent to them. Every time you see your primary care physician, or any other doctor, bring your medication list, and a list of questions. CONTACT YOUR PRIMARY CARE PROVIDER if you experience any of the following: Shortness of breath or difficulty breathing Fevers or chills Feeling tired with normal activity or experiencing dizziness or fainting Difficulty following your treatment plan, or difficulty taking medications - constipation or lack of bowel movements for 3 days CALL 911 OR GO TO THE EMERGENCY DEPARTMENT if you experience any of the following: Severe abdominal pain or nausea/vomiting Severe chest pain, or chest pain that radiates (moves) to your jaw or arm Sudden, severe shortness of breath or difficulty breathing Thank you for allowing us to participate in your care. Total Time Total Time Spent Total Time Spent (In Minutes): Time spent day of discharge 35 minutes including direct patient care, medication reconciliation, documentation, review of labs and images, and coordination of care. updated at bedside on discharge Coding Level of Care Code 98777 INP/OBS DISCH >30 MIN Diagnoses SBO (small bowel obstruction) K56.609 Memory loss R41.3
== END 2025-03-23 15:14 | disposition home or self-care (01) | DRG 390 ==
LOC: ED 14:22 → 3N 16:38 → SUATTDRO 16:38 → 3N 18:15